=== PATIENT | male | born 1995 | race Caucasian/White ===

== ENCOUNTER 2025-03-09 06:15 | Day surgery (SDC) | payer BC, SELFPAY ==
[2025-03-09] VITALS (10 sets, daily range): BP systolic 102–123; BP diastolic 54–89; PULSE 57–90; RESP 16; TEMP 36.5–36.6; O2SAT 92–100; BMI 22.1
--- OUTSIDE RECORDS SUMMARY | 2025-03-09 06:21 | XMS RPT_ITS | CCD ---
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 Name Role Phone KATHERIN HOMER Unavailable Unavailable HOMER PANDEY Unavailable Unavailable HOMER PANDEY Unavailable Unavailable PAULINA CABALLERO Unavailable Unavailable PROVIDER, UNKNOWN Unavailable Unavailable PROVIDER, UNKNOWN Unavailable Unavailable PROVIDER, UNKNOWN Unavailable Unavailable Nagi Salinas Referring Unavailable Mathew Glass Attending Unavailable Mathew Glass Attending Unavailable Problems Problem Classification Problem Date Documented Da te Episodic/Chronic Other skin disorders (1 source) Epidermal cyst; Translations: [Epidermal cyst] Onset: 03-03-2025 Episodic Results Test Name Value Interpretation Reference Range [facility] Plastic Surgery Visit Report on 01-29-2025 Plastic Surgery Visit Report [facility] Plastic Reconstructive Surgery [address], [address] [place] [address] OFFICE VISIT Date of Service: 01/29/25 MR#: [id number] Acct: [id number] Name: KEVON LUCIO Rep #: [id number] : 1995 Provider: Dr. Mathew Glass MD Age/Sex: 29/M Location: [facility] Status: Signed Intake Vital Signs 3 01/29/25 09:56 Weight: 155 lb BP 111/72 Blood Pressure Location Lt brachial Position Sitting Respiration 18 Pulse 68 Pulse Source Monitor Pulse Oximetry (%) 98 Oxygen Delivery Method room air Intake Visit Reasons: CYST R CHEEK Chief Complaint: Cyst R Cheek Is patient in pain?: No Allergies No Known Allergies Allergy (Unverified 01/29/25 09:55) Medications 3 ???Medication ???Instructions ???Recorded ???Confirmed ???Type NK 01/29/25 01/29/25 History PFSH Social History Smoking Status: Current every day smoker HPI CYST R CHEEK Details: Kevon Lucio is a delightful 29-year-old male who vapes and has a right cheek/mandibular angle epidermal inclusion cyst that was lanced by Dr. Nagi Salinas. He was unsure whether or not it was an abscess versus a cyst, but 1 cystic material came out of a consistent with an epidermal inclusion cyst, he decided to refer Mr. Lucio to me for removal of the cyst wall so that it does not recur. The cyst is bothering the patient as it is noticeable and uncomfortable and drains. No personal or family history of bleeding or clotting problems. Patient is otherwise healthy. No history of problems with anesthesia. Patient reports no history of any tooth abscesses in this location/tooth infections. ROS General General: Yes good health; No fatigue, fever(s) or weight loss HENMT HENMT: No rhinitis, sore throat/mouth sore, nasal congestion, contacts or glaucoma Endo Endocrine: No thyroid disease, polydipsia, heat intolerance, cold intolerance, hepatitis or excessive urine Skin Skin: No Bleeding, bruising, changing moles or suspicious lesion Musc Musculoskeletal: No joint pain, joint stiffness, muscle weakness, back pain, osteoarthritis or Muscle aches/ myalgia Neuro Neurological: No headache(s), No lightheadedness and No numbness Cardio Cardiovascular: No chest pain, pacemaker, fatigue or shortness of breat with exertion Psych Psychiatric: No depression, claustrophobia or anxiety Resp Respiratory: No spitting up, shortness of breath, sleep apnea, asthma, emphysema, TB, Cough or Smoker Gastro Gastrointestinal: No diarrhea, constipation, blood in stool, nausea, vomiting or abdominal bloating Kj Hematologic: No anemia, No bleeding and No abnormal bleeding Genitourinary: No urinary frequency, blood in urine or incontinence Exam Details No cervical lymphadenopathy Patient with a right lower cheek/mandibular angle cyst that is approximately 2 x 2 cm and is mobile. No draining sinus today. Unable to express any material in clinic. It does not have any intraoral extension. No tooth abscesses or signs of tooth infections today. Cranial nerve VII is symmetric bilaterally, he is able to purse lower lip, and raise his upper lip Coding Level of Care Code Off vis,new,level 3 Diagnoses Epidermal inclusion cyst L72.0 Assessment and Plan (No Qualifiers) Assessment and Plan (1) Epidermal inclusion cyst: Status: Acute Comment: Right cheek Plan: Likely an epidermal inclusion cyst. I discussed with him direct excision. On the differential is also an actinomyces lesion (lumpy jaw), but given that there is no history of any tooth problem at this time this is less likely. Plan for direct excision under general anesthesia given the location and proximity of the nerve. I discussed with him the risks of nerve damage especially to the marginal mandibular branch of the facial nerve (discussed risk of neuropraxia versus transection and lower lip droop/drooling). I talked to the patient extensively about the risks of surgery, including bleeding, infection, damage to surrounding structures, poor scaring, surgical site dehiscence and wound formation, need for wound care, need for repeat operations, recurrence of the cyst, failure to obtain the desired result, DVT/PE, and the risks of anesthesia including , including stroke (from low blood pressure/ischemia or clot). The benefits and alternatives of this surgery were also discussed. All of their questions were answered, and they agreed to proceed with surgery. CPT codes for insurance prior authorization are as follows: 44649, [id number] 01/29/251803 Date Mathew Yanes Signature: Date (if applica (more content not included)... [facility] 03-02-2019 [facility] Office Visit (UCWSTR ) NAVEEDKEVON ([id number]) 1995 M Date Time Provider Department 03/02/19 4:45 PM KEILA RUSHING [facility] During your visit today, we recorded the following information about you: Temperature Pulse Respiration Blood pressure 98.7 degrees 70/minute 16/minute 110/60 Weight 67.9 kg Keila Rushing APRN.DOMINICK 03/02/2019 5:45 PM Signed Subjective HPI Kevon Grider Naveed is a 23 year old male who presents with right hip pain since yesterday after he ran into a table. He says the pain started getting worse when he was at work walking. The pain is described as sharp. No numbness or tingling into his right lower extremity. Review of Systems Constitutional: Negative for chills, fever and malaise/fatigue. Musculoskeletal: Positive for joint pain. Negative for back pain and falls. Neurological: Negative for tingling, sensory change, focal weakness and weakness. BP 110/60 Pulse 70 Temp 37.1 ?C (98.7 ?F) (Tympanic) Resp 16 Wt 67.9 kg (149 lb 9.6 oz) BP 110/60 Pulse 70 Temp 37.1 ?C (98.7 ?F) (Tympanic) Resp 16 Wt 67.9 kg (149 lb 9.6 oz) No past medical history on file. No past surgical history on file. ALLERGIES Patient has no known allergies. MEDICATIONS naproxen (NAPROSYN) 500 mg tablet Take 1 tablet by mouth twice daily as needed (pain/inflammation, take with food.). No family history on file. Social History Tobacco Use - Smoking status: Current Every Day Smoker - Smokeless tobacco: Never Used Substance Use Topics - Alcohol use: Not on file - Drug use: Not on file Objective Physical Exam Constitutional: He is oriented to person, place, and time and well-developed, well-nourished, and in no distress. HENT: Head: Normocephalic and atraumatic. Eyes: Conjunctivae are normal. Cardiovascular: Normal rate, regular rhythm, normal heart sounds and intact distal pulses. Exam reveals no gallop and no friction rub. No murmur heard. Pulmonary/Chest: Effort normal and breath sounds normal. Musculoskeletal: He exhibits no edema, tenderness or deformity. Discomfort with straight leg raise of RLE, some bony tenderness at the right iliac crest prominence Neurological: He is alert and oriented to person, place, and time. Gait normal. Skin: Skin is warm and dry. Psychiatric: Mood, memory, affect and judgment normal. ASSESSMENT/PLAN: 1. Hip injury, right, initial encounter - ICD9: 959.6, ICD10: S79.911A - suspected superficial bone injury - rest, ice - Naproxen BID for 7-14 days - discussed red flag symptoms - hold XR, will return if no better in 7 days All of the above discussed with the patient in detail. Patient is in agreement with the above plan. Treatment and plan of care discussed including course of treatment, possible medication side effects, and what to watch for in regards to worsening signs and symptoms. All questions addressed. Keila Rushing APRN.CNP Referring Provider: SELF [[id number]] Allergies As of Date: 03/02/2019 (No Known Allergies) Date Reviewed: 03/02/2019 Reviewed by: Lillian Lopez LPN - Fully Assessed Reason for Visit: Right Hip Pain [1554] Cmt: x 1 day-ran into a table Primary Visit Diagnosis:Hip injury, right, initial encounter [S79.911A] Order(s):naproxen (NAPROSYN) 500 mg tabletTake 1 tablet by mouth twice daily as needed (pain/inflammation, take with food.).Disp: 28 tabletRfl: 0 Prescriptions as of 03/02/2019 Sig: NAPROXEN 500 MG TABLET Take 1 tablet by mouth twice * Problem List As Of Date: 03/02/2019 (None) Prescriptions ordered this encounter Disp Refills Start End NAPROXEN 500 MG TABLET 28 t* 0 03/02/2019 Route: ORAL Sig: Take 1 tablet by mouth twice daily as needed (pain/inflammation, take with food.). Letter Text Encounter Status:Closed by KRISTAN BAE.KEILA TAN on 03/02/19 Normal [facility] PROGRESSon 03-02-2019 Protein mass conc HNO ID: [id number] Author: Keila Rushing Service: ? Author Type: Nurse Practitioner Type: Progress Notes Filed: 03/02/2019 5:45 PM Note Text: Subjective HPI Kevon A Naveed is a 23 year old male who presents with right hip pain since yesterday after he ran into a table. He says the pain started getting worse when he was at work walking. The pain is described as sharp. No numbness or tingling into his right lower extremity. Review of Systems Constitutional: Negative for chills, fever and malaise/fatigue. Musculoskeletal: Positive for joint pain. Negative for back pain and falls. Neurological: Negative for tingling, sensory change, focal weakness and weakness. BP 110/60 Pulse 70 Temp 37.1 ?C (98.7 ?F) (Tympanic) Resp 16 Wt 67.9 kg (149 lb 9.6 oz) BP 110/60 Pulse 70 Temp 37.1 ?C (98.7 ?F) (Tympanic) Resp 16 Wt 67.9 kg (149 lb 9.6 oz) No past medical history on file. No past surgical history on file. ALLERGIES Patient has no known allergies. MEDICATIONS naproxen (NAPROSYN) 500 mg tablet Take 1 tablet by mouth twice daily as needed (pain/inflammation, take with food.). No family history on file. Social History Tobacco Use - Smoking status: Current Every Day Smoker - Smokeless tobacco: Never Used Substance Use Topics - Alcohol use: Not on file - Drug use: Not on file Objective Physical Exam Constitutional: He is oriented to person, place, and time and well-developed, well-nourished, and in no distress. HENT: Head: Normocephalic and atraumatic. Eyes: Conjunctivae are normal. Cardiovascular: Normal rate, regular rhythm, normal heart sounds and intact distal pulses. Exam reveals no gallop and no friction rub. No murmur heard. Pulmonary/Chest: Effort normal and breath sounds normal. Musculoskeletal: He exhibits no edema, tenderness or deformity. Discomfort with straight leg raise of RLE, some bony tenderness at the right iliac crest prominence Neurological: He is alert and oriented to person, place, and time. Gait normal. Skin: Skin is warm and dry. Psychiatric: Mood, memory, affect and judgment normal. ASSESSMENT/PLAN: 1. Hip injury, right, initial encounter - ICD9: 959.6, ICD10: S79.911A - suspected superficial bone injury - rest, ice - Naproxen BID for 7-14 days - discussed red flag symptoms - hold XR, will return if no better in 7 days All of the above discussed with the patient in detail. Patient is in agreement with the above plan. Treatment and plan of care discussed including course of treatment, possible medication side effects, and what to watch for in regards to worsening signs and symptoms. All questions addressed. Keila Rushing APRN.REAL ESTATE ASSISTANT Normal [facility] Encounters Encounter Date Encounter Type Care Provider Facility Start: 03-09-2025 ambulatory Mathew Glass Facility:[facility] Start: 01-29-2025 End: 01-29-2025 ambulatory Nagi Salinas [place] [place]: 05-28-2018 End: 05-28-2018 Patient encounter HOMER PANDEY [facility] Payers Date Payer Category Payer Self-pay 2025 Unknown [id number] Unknown [id number] Unknown [id number] Unknown [id number] Summary Purpose Family History No Family History Records FoundNo Family History Records FoundNo Family History Records Found Advance Directives No Advanced Directives Records FoundNo Advanced Directives Records FoundNo Advanced Directives Records Found Additional Source Comments (unrecognized sect ion and content) No Status Records FoundNo Status Records FoundNo Status Records Found INFORMATION SOURCE (unrecogn ized section and content) DATE CREATED AUTHOR [facility] DATE CREATED AUTHOR AUTHOR'S ORGANIZ ATION 03/05/2019 [facility] DATE CREATED AUTHOR AUTHOR'S ORGANIZ ATION 03/05/2025 [facility] FOR RECORDS PERTAINING TO PATIENTS WHO ARE OR HAVE BEEN ENROLLED IN A CHEMICAL DEPENDENCY/SUBSTANCEABUSE PROGRAM, SOME INFORMATION MAY BE OMITTED. This clinical summary was aggregated from multiple sources. Caution should be exercised in using it in the provision of clinical care. This summary normalizes information from multiple sources, and as a consequence, information in this document may materially change the coding, format and clinical context of patient data. In addition, data may be omitted in some cases. CLINICAL DECISIONS SHOULD BE BASED ON THE PRIMARY CLINICAL RECORDS. [employer] provides no warranty or guarantee of the accuracy or completeness of information in this document.
[2025-03-09] MEDS: Lactated Ringers 1,000 ML 15 ML IV (06:57)
--- NOTE | 2025-03-09 07:06 | PRE.ANES_ITS ---
ASA Classification* ASA Classification ASA Classification: 2 ((+) THC use daily, vapes, asthma. ) Assessment & Plan Anesthesia* Anesthesia Assessment Anesthesia Assessment: Discussed sedation and/or anesthesia options, risks, benefits, and alternatives with patient/parents/legal guardian/POA. Questions invited. The patient/parents/legal guardian/POA seems to understand and agrees to proceed with anesthesia plan. Reviewed the physical assessment, medical history, allergy history and patient home medications list prior to surgery/procedure/anesthetic and documented any changes. Performed airway and anesthesia risk assessments. Anesthesia Type Anesthesia Type: General (LMA if surgeon is agreeable) History Source History Obtained from:: Patient and Chart Anesthesia Focused Assessment* Temperature: 97.7 F Pulse Rate: 57 Blood Pressure: 102/89 Respiratory Rate: 16 Pulse Ox: 100 Oxygen Delivery Method: Room Air Airway Assessment Mouth opens: >3 cm Mallampati Score: II Teeth Condition: Intact and Missing (missing a few) Neck Range of motion (ROM): Full ROM Labs Anesthesia Preop lab: CBC CHEMISTRY COAG Pre-Assessment Diagnosis/Proposed Procedure Planned Operative Procedure(s): EXCISION RIGHT CHEEK CYST Anesthesia History Anesthesia History - support technician: Anesthesia History - support technician Hx Hospitalization No 02/24/25 15:19 Any Problems With Anesthesia No: NO ANESTHSIA HX 02/24/25 15:19 Cholinesterase deficiency No 02/24/25 15:19 You/Your Family Experience No 02/24/25 15:19 fever (hyperthermia) with Relationship Recent Exposure to Contagious No 03/09/25 06:50 Disease Does patient have nerve No 02/24/25 15:19 stimulator Patient instructed to have device shut off --Does patient have Pacemaker or ICD? When Was Last Pacemaker Check QUESTION #4 FULL TEXT: You/Your Family Experience fever (hyperthermia) with Anesthesia Last Oral Intake Last Oral intake: Last Oral Intake NPO since 00:00 03/09/25 06:51 Meds taken in AM with sips of No 03/09/25 06:51 water? Meds patient instructed to take am of surgery PONV PONV - support technician: PONV - support technician Female No 02/24/25 15:19 HX of Motion Sickness No 02/24/25 15:19 HX of N/V After Surgery No 02/24/25 15:19 Non-Smoker No 02/24/25 15:19 Duration of Surgery greater Yes 02/24/25 15:19 than 60 minutes Number of Risk Factors 1 02/24/25 15:19 PONV Score Low Risk 02/24/25 15:19 Height & Weight Height & Weight: Anesthesia: Height & Weight Height 5 ft 9 in 03/09/25 06:51 Weight: 68 kg 03/09/25 06:51 Body Mass Index (BMI) 22.1 03/09/25 06:51 Respiratory Assessment Respiratory Assessment - support technician: Respiratory Tract Infection Hx - support technician Hx Respiratory Tract Infection No 02/24/25 15:19 STOP Sleep Apnea STOP Sleep Apnea - support technician: STOP Sleep Apnea - support technician Hx Hypertension No 02/24/25 15:19 Hx Sleep Apnea No 02/24/25 15:19 CPAP BIPAP Do you snore loudly (louder Yes 02/24/25 15:19 than talking or can be heard Do you often feel tired/ No 02/24/25 15:19 fatigued/ sleepy during daytime? Has anyone observed you stop No 02/24/25 15:19 breathing during sleep? STOP Results Negative 02/24/25 15:19 QUESTION #5 FULL TEXT : Do you snore loudly (louder than talking or can be heard through closed doors)? Tobacco Use History Tobacco Use History - support technician: Tobacco Use History - support technician Tobacco Use Smoking Status Current every day smoker 02/24/25 15:19 Hx Tobacco Use Yes 02/24/25 15:19 Years Smoking Packs Smoked per Day Smoking Cessation Date was within the last 15 years Hx Smoking Cessation Date Hx Smoking Cessation Counseling Hematologic Medial History Hematologic Hx - support technician: Hematologic Medical Hx - gear changer Hx of Blood Transfusion No 02/24/25 15:19 Hx of Transfusion in last 3 No 02/24/25 15:19 Months Date of Last Transfusion (if within last 3 months) Ever experience any problems No 02/24/25 15:19 with transfusion(s)? Specify any problems Hx of Preganancy in last 3 N/A 02/24/25 15:19 Months Nurse Filling Out Transfusion DSCHRIBER 02/24/25 15:19 & Questions: Date: 02/24/25 02/24/25 15:19 Time: 15:20 02/24/25 15:19 Patient unable to answer at this time (ie. confused, unrespo /Reproduction History /Reproductive History - support technician: /Reproductive Hx- support technician Hx Now No 02/24/25 15:19 Gestational Age (in weeks): EDC: Hx Hx Para Hx Section SAB No 02/24/25 15:19 Active Medications Active Medications: Current Medications Generic Name Dose Route Start Last Admin Trade Name [place] PRN Reason Stop Dose Admin Cefazolin Sodium 2 gm/ Sodium 110 mls @ 150 mls/hr 03/09/25 07:30 Chloride IV 03/09/25 08:13 INTRAOP ONE Lactated Ringer's 1,000 mls @ 15 mls/hr 03/09/25 07:00 03/09/25 06:57 IV 15 mls/hr .Q48H MANISHA Administration PFSH Medical History (Updated 02/24/25 @ 15:25 by Julieta Hernandez) Marijuana use Back pain Syncope Vapes nicotine containing substance Asthma Leg cramps Cyst Home Medications ?Medication ?Instructions ?Recorded ?Last Taken ?Type NK 01/29/25 Unknown History Allergy/AdvReac Type Severity Reaction Status Date / Time No Known Allergies Allergy Verified 02/24/25 15:18 Social History Smoking Status: Current every day smoker tobacco type: e-cigarettes Review of Systems (Anesthesia) ROS Narrative System reviewed and no additional complaints, except as documented. Physical Exam Const alert, oriented x3 and average body habitus Resp normal respiratory effort, normal air movement and clear to auscultation bilaterally Cardio regular rate, regular rhythm, no murmurs and diaphoretic
--- NOTE | 2025-03-09 07:18 | HP.PCM.SX_ITS ---
HPI - General HPI Narrative Van Lucio is a delightful 29-year-old male who vapes and has a right cheek/mandibular angle epidermal inclusion cyst that was lanced by Dr. Nagi Salinas. He was unsure whether or not it was an abscess versus a cyst, but 1 cystic material came out of a consistent with an epidermal inclusion cyst, he decided to refer Mr. Lucio to me for removal of the cyst wall so that it does not recur. The cyst is bothering the patient as it is noticeable and uncomfortable and drains. No personal or family history of bleeding or clotting problems. Patient is otherwise healthy. No history of problems with anesthesia. Patient reports no history of any tooth abscesses in this location/tooth infect ions. Current Encounter (DATE OF SURGERY H&P UPDATE): I saw and examined the patient this morning in pre-operative holding. We discussed risks and benefits of today's surgery and they would like to proceed. NO CHANGE in health history since last seen and evaluated. Ready to proceed with surgery. [facility] Medical History (Updated 02/24/25 @ 15:25 by Julieta Hernandez) Marijuana use Back pain Syncope Vapes nicotine containing substance Asthma Leg cramps Cyst Home Medications ?Medication ?Instructions ?Recorded ?Last Taken ?Type NK 01/29/25 Unknown History Allergy/AdvReac Type Severity Reaction Status Date / Time No Known Allergies Allergy Verified 02/24/25 15:18 Social History Smoking Status: Current every day smoker tobacco type: e-cigarettes Vital Signs Vital Signs Vital Signs: 03/09/25 06:50 03/09/25 06:51 03/09/25 07:08 Temperature 97.7 F L 97.7 F L Temperature Source Temporal Pulse Rate 57 L 57 L Respiratory Rate 16 16 Respiratory Pattern Normal Blood Pressure 102/89 H 102/89 H Blood Pressure Mean 93 Blood Pressure Source Monitor Blood Pressure Position Semi-Fowlers Blood Pressure Location Left Arm Pulse Ox 100 100 Oxygen Delivery Method Room Air Room Air Weight Weight: 149 lb 14.629 oz Body Mass Index (BMI) 22.1 Physical Exam Narrative No cervical lymphadenopathy Patient with a right lower cheek/mandibular angle cyst that is approximately 2 x 2 cm and is mobile. No draining sinus today. Unable to express any material in clinic. It does not have any intraoral extension. No tooth abscesses or signs of tooth infections today. Cranial nerve VII is symmetric bilaterally, he is able to purse lower lip, and raise his upper lip Assessment & Plan Assessment/Plan (1) Epidermal inclusion cyst: PLAN: Plan Likely an epidermal inclusion cyst. I discussed with him direct excision. On the differential is also an actinomyces lesion (lumpy jaw), but given that there is no history of any tooth problem at this time this is less likely. Plan for direct excision under general anesthesia given the location and proximity of the nerve. I discussed with him the risks of nerve damage especially to the marginal mandibular branch of the facial nerve (discussed risk of neuropraxia versus transection and lower lip droop/drooling). I talked to the patient extensively about the risks of surgery, including bleeding, infection, damage to surrounding structures, poor scaring, surgical site dehiscence and wound formation, need for wound care, need for repeat operations, recurrence of the cyst, failure to obtain the desired result, DVT/PE, and the risks of anesthesia including , including stroke (from low blood pressure/ischemia or clot). The benefits and alternatives of this surgery were also discussed. All of their questions were answered, and they agreed to proceed with surgery. INTERVAL H&P PLAN, DATE OF SURGERY: We will proceed with surgery today. I reiterated the above noted risks, including damage to the facial nerve (marginal branch) and recurrence of the cyst/infection. He elected to proceed. CPT codes for insurance prior authorization are as follows: [id number], [id number]
--- NOTE | 2025-03-09 07:30 | LES_PTH ---
PATIENT: KEVON ROMERO [place] [facility][id number] AGE/SX: 29/M ROOM: RE03/09/[address]: Dr. Mathew Glass MD : 1995 BED: DIS: 03/09/2025 SPEC #: [id number] RECD: 03/09/25 10:43 STATUS: SANTI TONY #: [id number] STEPHANIE: 03/09/25 07:[address]: Mathew Glass DEPT: SURGICAL PATHOLOGY RECD BY: Ash Barriga ENTERED: 03/09/25 12:04 SP TYPE: Lesion OTHR DR: No Primary Care Phys Tissues: A - Skin of face, NOS Procedures: Surgery Specimen Level III HEADER OPERATION: Excision right cheek cyst PRE-OP DIAGNOSIS: Epidermal inclusion cyst TISSUE SUBMITTED: A- Face cyst, right cheek MICROSCOPIC DIAGNOSIS A. Right cheek, cyst, excision: * Skin with epidermal inclusion cyst. MICROSCOPIC DESCRIPTION Slides are reviewed. GROSS DESCRIPTION A.? Received in formalin labeled with the patient's name and date of . Designated as face cyst is a 1.6 x 1.3 x 0.9 cm nicolas-pink to white intact cyst focally surfaced by a 1.4 x 0.2 cm nicolas skin ellipse.? The external surfaces of the cyst are inked black.? Sectioning reveals a thin, fibrotic cyst wall and pink-yellow grumous cyst contents.? A account retention representative section is submitted in 1 cassette. DE 03/09/2025 CPT:15927
[2025-03-09] MEDS: Cefazolin 2 GM in 0.9% Normal Saline (100mL Bag) 100 ML IV (07:34)
[2025-03-09] MEDS: Lidocaine 1% /Epi 1:100 (50ml) 50 ML VIAL (07:50)
--- NOTE | 2025-03-09 08:16 | PCM.OPRPT ---
Operative Report (Standard) Operative Information Date of Procedure: 03/09/25 Pre-Operative Diagnosis: Right cheek cyst Post-Operative Diagnosis: Same Surgery/Procedure Performed: 1) excision of right cheek cyst, 1.5 x 1.5 cm, cpt:23387 2) intermediate closure right cheek 2.8 cm, cpt; 98970 cement block maker: Yes Airplane Flight Attendant Supervisor: George Hayes Tasks completed by first breaker feeder: Retracting Type of Anesthesia: General/Supplemental (1 cc of 1% lidocaine with 1-200,000 epinephrine) RN Documented Start/Stop Times: Operation Date: 03/09/25 07:30 Case Time Into Pre-Op 03/09/25 06:22 Out of Pre-Op 03/09/25 07:30 Anesthesia Start 03/09/25 07:34 Into Room 03/09/25 07:34 Procedure Start 03/09/25 08:00 Procedure Start Time: 08:00 Procedure Stop Time: 08:15 Select all DRAINS/GRAFTS/IMPLANTS that apply: None Estimated Blood Loss: Minimal Specimen collected: Yes Description of specimen(s) removed: Right cheek cyst Description of surgery: Indications Patient is a 29-year-old male with a right cheek cyst. Presents today for excision. I talked him about the risk benefits and alternatives, and he elected to proceed. Procedure details Patient was correctly identified in preoperative holding and taken back to the operating room where he was administered general anesthesia with an LMA and he was prepped and draped in sterile fashion. Timeout was performed. 1 cc of local was used. 15 blade scalpel was used to make a direct incision over the mass. Dissection was carefully performed around the cyst wall/sac using tenotomy scissors and a forceps. It was removed in 1 piece and measured 1.5 x 1.5 cm. It was in the subcutaneous plane. Hemostasis was obtained with Bovie electrocautery and the wound was irrigated with Irrisept and copious amounts normal saline. The cyst was sent to pathology. The wound was closed with 4-0 Monocryl deep dermal suture followed by running subcuticular 4-0 Monocryl and Steri-Strips. Patient was awakened and taken to the PACU in stable condition and tolerated the procedure well. The total intermediate closure was 2.8 cm. Postoperative plan Follow-up in 1 week to review pathology and for wound check Surgical Findings: Right cheek cyst consistent with epidermal inclusion cyst Complications Complications: No Admit VTE Documentation VTE Mechan Device Prophylaxis: SCD's
--- NOTE | 2025-03-09 09:11 | PCM.POST.ANE ---
Anesthesia: Postop Eval I Current Vital Signs Temperature: 98 F Pulse Rate: 82 Blood Pressure: 111/55 Respiratory Rate: 16 Pulse Ox: 96 Oxygen Delivery Method: Room Air Assessment Airway patent: Yes Spontaneous unlabored respirations: Yes Mental status: Awake and Calm nausea: No Vomiting: No Anesthesia Complication: No Fluid Hydration Crystalloid volume administer (ml): 800 Total IV fluid infused: 800 Progress Note Anesthesia document: Postop Eval 1 completed: Yes
--- NOTE | 2025-03-09 10:11 | POSTOPAN2_ITS ---
Anesthesia Postop Eval I Sum Postop Eval Completion status Anesthesia document: Postop Eval 1 completed: Yes Anesthesia Postop Eval I Summary Anesthesia Postop Eval I Summary: Anesthesia Postop Eval I: Assessment Summary Airway patent Yes 03/09/25 09:12 AIRCRAFT PNEUDRAULICS REPAIRER.[email or web address] Spontaneous unlabored Yes 03/09/25 09:12 AIRCRAFT PNEUDRAULICS REPAIRER.TRUDI respirations Mental status Awake,Calm 03/09/25 09:12 AIRCRAFT PNEUDRAULICS REPAIRER.TRUDI nausea No 03/09/25 09:12 AIRCRAFT PNEUDRAULICS REPAIRER.TRUDI Vomiting No 03/09/25 09:12 AIRCRAFT PNEUDRAULICS REPAIRER.TRUDI Anesthesia Postop Eval I: Fluid Summary Crystalloid volume administer 800 03/09/25 09:12 AIRCRAFT PNEUDRAULICS REPAIRER.SEDAOBOnesimo (ml) Colloids volume administered ( ml) Blood Product volume administered (ml) Total IV fluid infused 800 03/09/25 09:12 AIRCRAFT PNEUDRAULICS REPAIRER.TRUDI Anesthesia Postop Eval I: Summary Notes Anesthesia Complication No 03/09/25 09:12 AIRCRAFT PNEUDRAULICS REPAIRER.TRUDI Anesthesia Complication Comment: Post-operative progress note Anesthesia: Postop Eval II Evaluation Mental status: Awake Pain Level: 0 nausea: No Vomiting: No Complications Anesthesia Complication: No
--- NOTE | 2025-03-09 10:11 | PCM.POSTANE2 ---
Anesthesia Postop Eval I Sum Postop Eval Completion status Anesthesia document: Postop Eval 1 completed: Yes Anesthesia Postop Eval I Summary Anesthesia Postop Eval I Summary: Anesthesia Postop Eval I: Assessment Summary Airway patent Yes 03/09/25 09:12 RUBBER MILL OPERATOR.[email or web address] Spontaneous unlabored Yes 03/09/25 09:12 RUBBER MILL OPERATOR.TRUDI respirations Mental status Awake,Calm 03/09/25 09:12 RUBBER MILL OPERATOR.TRUDI nausea No 03/09/25 09:12 RUBBER MILL OPERATOR.TRUDI Vomiting No 03/09/25 09:12 RUBBER MILL OPERATOR.TRUDI Anesthesia Postop Eval I: Fluid Summary Crystalloid volume administer 800 03/09/25 09:12 RUBBER MILL OPERATOR.SEDAOBOnesimo (ml) Colloids volume administered ( ml) Blood Product volume administered (ml) Total IV fluid infused 800 03/09/25 09:12 RUBBER MILL OPERATOR.TRUDI Anesthesia Postop Eval I: Summary Notes Anesthesia Complication No 03/09/25 09:12 RUBBER MILL OPERATOR.TRUDI Anesthesia Complication Comment: Post-operative progress note Anesthesia: Postop Eval II Evaluation Mental status: Awake Pain Level: 0 nausea: No Vomiting: No Complications Anesthesia Complication: No
== END 2025-03-09 09:28 | disposition home or self-care (01) ==
LOC: SDC 06:19 → AC 06:21
PROVIDERS: Referring Provider Surgery Plastic and Reconstructive Surgery; Visit Provider Surgery Plastic and Reconstructive Surgery
PROC: (CPT 11443; principal; 2025-03-09 07:15)
DX: L72.0 Epidermal cyst (principal); F17.290 Nicotine dependence, other tobacco product, uncomplicated
CPT/HCPCS: 11443; 12052; 88304; 88305; J2405